=== PATIENT | female | born 2000 | race Caucasian/White ===

== ENCOUNTER 2024-03-24 18:35 | Emergency (ER) | payer BC, SELFPAY ==
[2024-03-24 18:36] VITALS: BP 126/98
--- NOTE | 2024-03-24 19:05 | ED.GENMED ---
History of Present Illness
General
Chief Complaint: Abdominal Pain
Source: patient
Exam Limitations: none
Time Seen by Provider: 03/24/24 18:50
Travel History
Have you had any contact with someone who has COVID-19?: No
Do you have any symptoms of coronavirus? Fever > 100 degrees, chills, cough, shortness of breath, sore throat, loss of taste or smell, muscle aches, or headache?: No
History of Present Illness
History of Present Illness:
24-year-old female right lower quadrant pain since yesterday. Pointing slightly lateral to McBurney's point. No nausea or vomiting no anorexia. No fever. No radiation to the back. Bowel movements are normal. No history of similar pain.
Symptoms have waxed and waned throughout the day but are moderate in nature. Took Advil this morning. Sent into evaluate for appendicitis
Past History
Past History
ED Past Medical History: Other (migraine)
ED Past Surgical History: Orthopedic and Tonsilectomy
Social History
Tobacco: Non-smoker
Alcohol: None
Drug: None
Personal: Single
Living: with family
Review of Systems
Review of Systems
All Other Systems: Not applicable
Constitutional: Denies fever
Respiratory: Reports no symptoms
ABD/GI: Denies diarrhea
: Reports no symptoms
Phy Exam
Physical Exam
Physical Exam:
GENERAL: Alert and oriented in no apparent distress
EYE: Orbits normal.
NECK: Supple
ENT: Pharynx without erythema
CARDIAC: Regular rate and rhythm without any obvious murmurs.
LUNGS: Clear breath sounds,normal
ABDOMEN: Soft, bowel sounds present. No distention. Some referred pain to the right lower quadrant from the epigastric and left lower quadrant area. However no rebound or guarding no mass or hernia. Mild to moderate tenderness right lower
quadrant slightly lateral to McBurney's point. No pelvic tenderness
NEUROLOGICAL: Alert and oriented , grossly non-focal
SKIN: Warm and dry, no rash or lesion, no discoloration, skin intact.
MUSCULOSKELETAL: No edema,no deformity.Good color
PSYCH: Normal and appropriate interaction.
Course
Orders/Labs/Results
Orders:
Orders
03/24/24 19:03
IV Insert/Care/Rem.- Treatment PRN
0.9% Sodium Chloride 500 ml [Nss] 500 ml IV BOLUS
Iohexol [Omnipaque] See Protocol PO NOW STA
03/24/24 19:04
CT Abd/pel W Iv And Oral Contr Urgent
Comment:
Reason For Exam: Right lower quadrant pain
Test Result ONCE
03/24/24 19:21
Complete Blood Count/With Diff Urgent
Comprehensive Metabolic Panel Urgent
HCG, Serum Qualitative Screen Urgent
Lipase Urgent
Urinalysis Reflex To Culture Urgent
Date Specimen was Collected: 03/24/24
Time Specimen was Collected: 19:11
Abnormal Lab Results
03/24/24
19:21
Glucose 103 H mg/dl
(70-99)
03/24/24 19:21
03/24/24 19:21
Vital Signs
Initial and Last Documented VS:
Initial Vital Signs
Temp Pulse Resp BP Pulse Ox
98.3 F 90 20 126/98 100
03/24/24 18:36 03/24/24 18:36 03/24/24 18:36 03/24/24 18:36 03/24/24 18:36
Last Documented Vital Signs
Temp Pulse Resp BP Pulse Ox
98.3 F 89 18 124/77 98
03/24/24 18:36 03/24/24 21:34 03/24/24 21:34 03/24/24 21:34 03/24/24 21:34
MDM/Problems Addressed
Differential Diagnosis Includes:
Healthy 24-year-old with right lower quadrant pain. Doubt ovarian etiology. Patient is midcycle. She is not behaving like a torsion. Tenderness is not in the pelvis is more lateral to McBurney's point. Appendicitis of course is in the realm of
possibilities. Discussed ultrasound versus CT and the risk-benefit of both. Patient would prefer CT scan.
*Radiology
Radiology exam reviewed: radiology read reviewed (Negative CT)
*Pulse Oximetry
Patient hypoxic: no
*Critical Care Note
Total Time (30-74mins, 75-104mins- exclusive of procedures): Not Applicable
Update Note
Update Note:
No serious issues found both by labs and CT scan. Medically stable for discharge. Highly doubt ovarian issue. Not behaving like a torsion, no ovarian swelling. No deep pelvic tenderness.
ED Attending Note
-
Portions of this chart may have been created with voice recognition software.� Occasional wrong word or��sound alike� substitutions may have occurred due to the inherent limitations of voice recognition software.
Discharge Plan
Departure
Patient Disposition: Home (Routine Discharge)
Date of Disposition: 03/24/24
Time of Disposition: 22:16
Patient with high blood pressure during this ER visit?: No
Discharge Problem:
Right lower quadrant abdominal pain
Instructions: Abdominal Pain
Prescriptions:
No Action
L norgest/e.estradiol-e.estrad [Camrese] 1 EACH tablets,dose pack,3 month
1 ea PO DAILY
ondansetron 4 MG tablet,disintegrating
4 mg PO TIDPRN PRN (Reason: nausea/vomiting) Qty: 14 0RF
Referrals:
Joo Xavier, DO [Family Provider] - Follow up in 2-3 days
Activity Restrictions/Additional Instructions:
Recheck with increased pain or if symptoms have not resolved in 2 to 3 days
Interventions
Interventions:
*Risk Screen - Suicide Last Done: 03/24/24 18:36
*General Assessment Last Done: 03/24/24 18:36
*Neglect/Abuse Screening Last Done: 03/24/24 18:36
ED- Fall Risk Assessment Last Done: 03/24/24 19:55
*ED COVID-19 Vaccine History Last Done: 03/24/24 19:10
GP-Hjuagh-Ejkqrvivwm Assessment Last Done: 03/24/24 19:54
Discharge Date and Time
Print Language: NEPALI
[2024-03-24 19:10] VITALS: BMI 23.3
[2024-03-24] MEDS: NSS 500 IV (19:19)
[2024-03-24] MEDS: OMNIPAQUE 50 ML PO (19:20)
[2024-03-24 19:28] LABS: % Basophils 0.4 % (0-2); % Eosinophils 0.8 % (0-6); % Immature Granulocytes 0.1 % (0-0.5); % Lymphocytes 33.8 % (20.5-51.1); % Monocytes 6.7 % (1.7-9.3); % Neutrophils 58.2 % (42.2-75.2); Absolute Eosinophils 0.1 10^3/uL (0-0.7); Absolute Lymphocytes 2.6 10^3/uL (1.2-3.4); Absolute Monocytes 0.5 10^3/uL (0.1-0.6); Absolute Neutrophils 4.5 10^3/uL (1.4-6.5); Hematocrit 41.8 % (37.0-47.0); Mean Corp Hgb Conc. 33.5 g/dL (33.0-37.0); Mean Corpuscular Hgb 29.7 pg (27.0-31.0); Mean Corpuscular Volume 88.6 fL (81.0-99.0); Mean Platelet Volume 9.4 fL (7.4-10.4); Nucleated Red Blood Cells % 0 %; Platelet Count 186 10^3/uL (130-400); Red Blood Cell Count 4.72 10^6/uL (4.20-5.40); Red Cell Dist. Width 11.6 % (11.5-14.5); White Blood Cell Count 7.8 10^3/uL (4.8-10.8)
[2024-03-24 19:36] LABS: Urine Albumin Negative (Neg - Trace); Urine Bilirubin Negative (Negative); Urine Character Clear (Clear); Urine Color Yellow; Urine Glucose Negative (Negative); Urine Ketone Negative (Negative); Urine Leukocyte Negative (Negative); Urine Nitrite Negative (Negative); Urine Occult Blood Negative (Negative); Urine Urobilinogen Negative (Neg - 1+)
[2024-03-24 19:40] LABS: HCG, Serum Qualitative Screen Negative
[2024-03-24 19:47] LABS: ALT (SGPT) 14 U/L (0-35); AST (SGOT) 30 U/L (14-36); Albumin 4.7 g/dl (3.5-5.0); Alkaline Phosphatase 45 U/L (38-126); Blood Urea Nitrogen 14 mg/dl (7-17); Calcium 9.9 mg/dl (8.4-10.2); Carbon Dioxide 27 mmol/L (22-30); Chloride 103 mmol/L (98-107); Estimated Creatinine Clearance > 125 ml/min; Glucose 103 mg/dl (70-99); Potassium 3.9 mmol/L (3.5-5.1); Sodium 138 mmol/L (135-145); Total Bilirubin 0.5 mg/dl (0.2-1.3); Total Protein 7.4 g/dl (6.3-8.2); eGFR > 60.00
[2024-03-24 19:49] LABS: Lipase 118 U/L (23-300)
[2024-03-24 21:34] VITALS: BP 124/77
== END 2024-03-24 22:22 | disposition home or self-care (01) ==
LOC: EMR 18:35
PROVIDERS: EMERGENCY PHYSICIAN Emergency Medicine; FAMILY PHYSICIAN Family Medicine
DX: R10.31 Right lower quadrant pain (principal)
CPT/HCPCS: 99285; 96360; 96361; 74177; 80053; 81003; 83690; 84703; 85025; Q9967

== ENCOUNTER → 2024-03-30 14:48 | Outpatient (REF) | payer BC, SELFPAY | LOC: HWRAD 14:48 | PROVIDERS: ATTENDING PHYSICIAN Physician Assistant Medical | DX: R22.1 Localized swelling, mass and lump, neck (principal) | CPT/HCPCS: 76536 ==

== ENCOUNTER 2024-09-18 15:33 | Emergency (ER) | payer BC, SELFPAY ==
[2024-09-18 15:36] VITALS: BP 162/132
[2024-09-18 16:14] LABS: % Basophils 0.2 % (0-2); % Eosinophils 0.5 % (0-6); % Immature Granulocytes 0.6 % (0-0.5); % Lymphocytes 11.4 % (20.5-51.1); % Monocytes 5.8 % (1.7-9.3); % Neutrophils 81.5 % (42.2-75.2); Absolute Eosinophils 0.1 10^3/uL (0-0.7); Absolute Immature Granulocytes 0.1 10^3/uL (0-0.05); Absolute Lymphocytes 1.4 10^3/uL (1.2-3.4); Absolute Monocytes 0.7 10^3/uL (0.1-0.6); Hematocrit 38.6 % (37.0-47.0); Hemoglobin 13.5 g/dL (12.0-16.0); Mean Corpuscular Hgb 30.1 pg (27.0-31.0); Mean Platelet Volume 8.9 fL (7.4-10.4); Nucleated Red Blood Cells % 0 %; Platelet Count 263 10^3/uL (130-400); Red Blood Cell Count 4.49 10^6/uL (4.20-5.40); Red Cell Dist. Width 11.5 % (11.5-14.5); White Blood Cell Count 12.3 10^3/uL (4.8-10.8)
[2024-09-18 16:26] LABS: ALT (SGPT) 18 U/L (0-35); AST (SGOT) 27 U/L (14-36); Albumin 4.5 g/dl (3.5-5.0); Alkaline Phosphatase 52 U/L (38-126); Blood Urea Nitrogen 9 mg/dl (7-17); Calcium 9.5 mg/dl (8.4-10.2); Carbon Dioxide 29 mmol/L (22-30); Chloride 101 mmol/L (98-107); Glucose 111 mg/dl (70-99); Potassium 4.6 mmol/L (3.5-5.1); Sodium 141 mmol/L (135-145); Total Bilirubin 0.3 mg/dl (0.2-1.3); Total Protein 7.5 g/dl (6.3-8.2); eGFR > 60.00
[2024-09-18 16:30] LABS: HCG, Serum Qualitative Screen Negative
[2024-09-18 17:53] LABS: COVID-19 Antigen Negative (Negative)
[2024-09-18] MEDS: DUONEB 3 ML INH (19:46)
[2024-09-18 20:11] VITALS: BP 131/81
[2024-09-18] MEDS: DECADRON 10 MG PO (20:28)
--- NOTE | 2024-09-18 22:43 | ED.GENMED ---
History of Present Illness
General
Chief Complaint: Cold/Flu/URI Symptoms
Source: patient
Exam Limitations: none
Time Seen by Provider: 09/18/24 18:55
Nursing documentation reviewed up to this point in time: agreed with
Past History
Past History
ED Past Medical History: Other (migraine)
ED Past Surgical History: Orthopedic and Tonsilectomy
Social History
Tobacco: Non-smoker
Alcohol: None
Drug: None
Personal: Single
Living: with family
Review of Systems
Review of Systems
All Other Systems: ROS reviewed and negative except as documented in HPI and ROS
Constitutional: Reports no symptoms
EENT: Reports no symptoms
Respiratory: Reports cough
Cardiac: Reports no symptoms
ABD/GI: Reports no symptoms
: Reports no symptoms
Musculoskeletal: Reports no symptoms
Skin: Reports no symptoms
Neurological: Reports no symptoms
Psychiatric: Reports no symptoms
Phy Exam
General Physical Exam
General Presentation: well appearing and no apparent distress
General age: appears stated age
General Skin: warm and dry
General Habitus: normal
General Mental: alert
Cardiovascular Exam
Cardiovascular Exam: regular rate/rhythm and no edema
Pulmonary Exam
Pulmonary Exam: lungs clear, no respiratory distress and chest non tender
Cough: non productive cough
Musculoskeletal Exam
Musculoskeletal Exam: full ROM and neuro vasc intact
Skin Exam
Skin Exam: normal color, warm/dry and no rash
Psychiatric Exam
Psychiatric Exam: normal mood/affect
Course
Orders/Labs/Results
Orders:
Orders
09/18/24 15:42
Test Result ONCE
Chest [CR Chest - 2 Views ] Urgent
Comment:
Reason For Exam: cough cold
09/18/24 15:49
CMP [Comprehensive Metabolic Panel] Urgent
Complete Blood Count/With Diff Urgent
HCG, Serum Qualitative Screen Urgent
09/18/24 17:27
COVID-19 Antigen Urgent
Source: Nasal Swab
INF RAPID [Influenza A+B Rapid Molecular] Urgent
NANETTE Source: Nasal Swab
Specimen Description:
09/18/24 19:36
Ipratropium/Albuterol Sulfate [Duoneb] 3 ml INH R NOW STA
09/18/24 20:13
Dexamethasone Pf [Decadron] 10 mg PO NOW STA
Abnormal Lab Results
09/18/24
15:49
WBC 12.3 H 10^3/uL
(4.8-10.8)
Abs Immat Gran (auto) 0.1 H 10^3/uL
(0-0.05)
Absolute Neuts (auto) 10.0 H 10^3/uL
(1.4-6.5)
Absolute Monos (auto) 0.7 H 10^3/uL
(0.1-0.6)
Immature Gran % 0.6 H %
(0-0.5)
Neutrophils % 81.5 H %
(42.2-75.2)
Lymphocytes % 11.4 L %
(20.5-51.1)
Glucose 111 H mg/dl
(70-99)
09/18/24 15:49
09/18/24 15:49
Vital Signs
Initial and Last Documented VS:
Initial Vital Signs
Temp Pulse Resp BP Pulse Ox
98.1 F 98 18 162/132 97
09/18/24 15:36 09/18/24 15:36 09/18/24 15:36 09/18/24 15:36 09/18/24 15:36
Last Documented Vital Signs
Temp Pulse Resp BP Pulse Ox
98.1 F 95 18 131/81 97
09/18/24 15:36 09/18/24 20:11 09/18/24 20:11 09/18/24 20:11 09/18/24 20:11
*Radiology
Radiology exam reviewed: radiology read reviewed
*Pulse Oximetry
Patient hypoxic: no
ED Attending Note
-
Portions of this chart may have been created with voice recognition software.� Occasional wrong word or��sound alike� substitutions may have occurred due to the inherent limitations of voice recognition software.
Discharge Plan
Departure
Patient Disposition: Home (Routine Discharge)
Date of Disposition: 09/18/24
Time of Disposition: 20:13
Patient with high blood pressure during this ER visit?: No
Condition: Good
Discharge Problem:
Acute bronchitis
Instructions: Bronchitis, Adult ED
Prescriptions:
New
albuterol sulfate 2.5 mg /3 mL (0.083 %) solution for nebulization
2.5 mg inhalation Q4H PRN (Reason: bronchospasm) Qty: 90 0RF
prednisone 10 mg Tablet
See Rx Instructions .ROUTE .COMPLEX Qty: 30 0RF
Rx Instructions:
Take By Mouth:
40 mg daily x3 days, 30 mg daily x3 days,
20 mg daily x3 days, 10 mg daily x3 days.
No Action
L norgest/e.estradiol-e.estrad [Camrese] 1 EACH tablets,dose pack,3 month
1 ea PO DAILY
ondansetron 4 MG tablet,disintegrating
4 mg PO TIDPRN PRN (Reason: nausea/vomiting) Qty: 14 0RF
Referrals:
Joo Xavier, DO [Family Provider] - Follow up in 2-3 days
Interventions
Interventions:
*Risk Screen - Suicide Last Done: 09/18/24 20:32
*General Assessment Last Done: 09/18/24 20:31
*Neglect/Abuse Screening Last Done: 09/18/24 20:31
*Nursing Disposition Last Done: 09/18/24 20:32
ED- Pulmonary Assessment Last Done: 09/18/24 19:50
Discharge Date and Time
Discharge Date/Time: 09/18/24 20:33
Print Language: PERUVIAN
== END 2024-09-18 20:33 | disposition home or self-care (01) ==
LOC: EMR 15:33
PROVIDERS: Registered Nurse; EMERGENCY PHYSICIAN Student in an Organized Health Care Education/Training Program; FAMILY PHYSICIAN Family Medicine
DX: J20.9 Acute bronchitis, unspecified (principal)
CPT/HCPCS: 99283; 94640; 71046; 80053; 84703; 85025; 87502; 87811

== ENCOUNTER → 2025-04-10 07:02 | Outpatient (REF) | payer BC, SELFPAY ==
[2025-04-10 08:15] LABS: Vitamin D, 25-OH*** 47.2 ng/mL (30-80)
[2025-04-10 08:29] LABS: TSH Reflex To Free T4 2.05 uIU/ml (0.47-4.68)
[2025-04-10 10:22] LABS: FSH 2.2 mIU/ml; Luteinizing Hormone 9.26 mIU/ml; Prolactin 30.9 ng/ml (3.0-18.6)
[2025-04-10 10:38] LABS: Estradiol 65.7 pg/ml; Testosterone, Total 37.5 ng/dl
[2025-04-11 14:17] LABS: Adrenocorticotropic Hormone 19.5 pg/mL (7.2-63.3)
[2025-04-12 00:05] LABS: DHEA Sulfate 338 ug/dL (148-407)
== END ==
LOC: REG 07:02
PROVIDERS: ATTENDING PHYSICIAN Nurse Practitioner Family; FAMILY PHYSICIAN Family Medicine
DX: N92.6 Irregular menstruation, unspecified (principal); L70.0 Acne vulgaris; R53.83 Other fatigue
CPT/HCPCS: 36415; 82024; 82306; 82627; 82670; 83001; 83002; 84144; 84146; 84403; 84443

== ENCOUNTER → 2025-04-14 19:09 | Outpatient (REF) | payer BC, SELFPAY | LOC: MRI 19:09 | PROVIDERS: ATTENDING PHYSICIAN Family Medicine | DX: R41.3 Other amnesia (principal); R51.9 Headache, unspecified; G43.E09 Chronic migraine with aura, not intractable, without status migrainosus | CPT/HCPCS: 70553; A9575 ==

== ENCOUNTER → 2025-04-17 07:19 | Outpatient (REF) | payer BC, SELFPAY | LOC: REG 07:19 | PROVIDERS: ATTENDING PHYSICIAN Specialist; FAMILY PHYSICIAN Family Medicine | DX: R14.0 Abdominal distension (gaseous) (principal) | CPT/HCPCS: 36415; 82784; 83516; 86231 ==

== ENCOUNTER → 2025-06-10 06:28 | Outpatient (REF) | payer BC, SELFPAY | LOC: RAD 06:28 | PROVIDERS: ATTENDING PHYSICIAN Specialist; FAMILY PHYSICIAN Family Medicine | DX: R14.0 Abdominal distension (gaseous) (principal); R10.9 Unspecified abdominal pain | CPT/HCPCS: 76700 ==

== ENCOUNTER → 2025-06-28 12:17 | Outpatient (REF) | payer BC, SELFPAY | LOC: REG 12:17 | PROVIDERS: ATTENDING PHYSICIAN Family Medicine | DX: K58.1 Irritable bowel syndrome with constipation (principal) | CPT/HCPCS: 87045; 87046; 87077; 87324; 87328; 87329; 87427; 87449 ==

== ENCOUNTER → 2025-08-24 07:23 | Outpatient (REF) | payer BC, SELFPAY | LOC: RAD 07:23 | PROVIDERS: ATTENDING PHYSICIAN Specialist; FAMILY PHYSICIAN Family Medicine | DX: R11.2 Nausea with vomiting, unspecified (principal) | CPT/HCPCS: 78264; A9541 ==